=== PATIENT | male | born 1945 | race Caucasian/White ===

== ENCOUNTER 2018-02-22 17:08 | Emergency (ER) | payer MEDICARE ==
--- NOTE | 2018-02-22 17:18 | EDM.PDOC ---
ED HPI GENERAL MEDICAL PROBLEM - General Stated Complaint: ILLNESS [facility] Time Seen by Provider: 02/22/18 17:10 Source of Information: Reports: Patient, EMS, RN Notes Reviewed History Limitations: Reports: No Limitations - History of Present Illness INITIAL COMMENTS - FREE TEXT/NARRATIVE: 72-year-old gentleman presents to the emergency department today via EMS for an unresponsive event. He was scheduled for clinic visit today however he did not show well for check was called on him law enforcement found him unresponsive on the floor EMS was called initial blood sugar was 36 they did provide 250 mL of glucose in combination with some food he was able to arouse. Brought into the emergency department for further evaluation. He does not recall any of this, states last night he remembers give himself some insulin but then has no recollection of any other events. At this time he has no complaints other than being hungry - Related Data Allergies Allergy/AdvReac Type Severity Reaction Status Date / Time Penicillins Allergy Cannot Verified 02/22/18 17:35 Remember Home Meds: Home Meds Aspirin 325 mg PO DAILY 03/28/14 [History] Hydrochlorothiazide/Losartan [Hyzaar 100-25 MG] 1 tab PO DAILY 03/28/14 [History ] Insulin Lispro [HumaLOG] 30 units SQ TIDMEALS 03/28/14 [History] Metoprolol Succinate [Toprol XL] 50 mg PO DAILY 03/28/14 [History] Simvastatin [Zocor] 20 mg PO BEDTIME 03/28/14 [History] amLODIPine [Norvasc] 10 mg PO DAILY 03/28/14 [History] metFORMIN [Glucophage] 1,000 mg PO BID 03/28/14 [History] Dulaglutide [Trulicity] 1.5 mg SUBCUT WEEKLY 02/22/18 [History] Insulin Glargine,Hum.Rec.Anlog [Basaglar Kwikpen U-100] 80 units SUBCUT DAILY [History] Past Medical History Endocrine/Metabolic History: Reports: Diabetes, Type II Social & Family History - Tobacco Use Smoking Status *Q: Never Smoker ED ROS GENERAL - Review of Systems Review Of Systems: See Below Constitutional: Reports: No Symptoms HEENT: Reports: No Symptoms Respiratory: Reports: No Symptoms Cardiovascular: Reports: No Symptoms GI/Abdominal: Reports: No Symptoms : Reports: No Symptoms Musculoskeletal: Reports: No Symptoms Skin: Reports: No Symptoms Neurological: Reports: No Symptoms - Physical Exam Exam: See Below Text/Narrative:: General: Male, not in any distress, speech is difficult to understand,, alert and oriented x3 HEENT: head is atraumatic normocephalic, eyes pupils equal round reactive to light, sclera clear no conjunctivitis appreciated. Ears tympanic membranes clear and roldan landmarks and light reflex are present bilaterally canals are clear. Nose no septal deviation, nares are clear, no blood present. Mouth mucosa is moist and pink no erythema or exudate noted in soft palate, tongue is midline uvula is midline, dentition is intact. Neck: Supple no thyromegaly no tracheal deviation. Nodes: Cervical nodes subclavicular nodes nontender no palpable lymphadenopathy noted. Lungs: clear to auscultation bilaterally with symmetrical respirations, no adventitious noise appreciated. CV: Regular rate and rhythm S1 and S2 appreciated no murmurs rubs or gallops noted. Abdomen: Soft, obese, nontender, no palpable masses or organomegaly appreciated , no distention no guarding bowel sounds are present, . Neuro: GCS 15 Skin: Warm and dry, intact Extremities: No lower extremity edema appreciated, chronic stasis dermatitis bilaterally pedal pulse is +2. Course - Vital Signs Last Recorded V/S: Last Vital Signs Temp 96.7 F 02/22/18 17:32 Pulse 90 02/22/18 18:43 Resp 17 02/22/18 18:43 BP 114/64 02/22/18 18:43 Pulse Ox 96 02/22/18 18:43 - Orders/Labs/Meds Orders: Active Orders 24 hr Category Date Time Status EKG Documentation Completion [RC] ASDIRECTED Care 02/22/18 17:20 Active EKG 12 Lead [EK] Urgent Ther 02/22/18 17:19 Ordered Labs: Laboratory Tests 02/22/18 02/22/18 02/22/18 Range/Units 17:19 17:30 17:34 WBC 10.4 (4.5-11.0) K/uL RBC 4.92 (4.30-5.90) M/uL Hgb 13.7 (12.0-15.0) g/dL Hct 42.4 (40.0-54.0) % MCV 86 (80-98) fL MCH 28 (27-31) pg MCHC 32 (32-36) % Plt Count 279 (150-400) K/uL Neut % (Auto) 83 H (36-66) % Lymph % (Auto) 10 L (24-44) % Griggs % (Auto) 7 H (2-6) % Eos % (Auto) 0 L (2-4) % Baso % (Auto) 0 (0-1) % Sodium 141 (140-148) mmol/L Potassium 3.6 (3.6-5.2) mmol/L Chloride 104 (100-108) mmol/L Carbon Dioxide 27 (21-32) mmol/L Anion Gap 10.0 (5.0-14.0) mmol/L BUN 23 H (7-18) mg/dL Creatinine 1.3 (0.8-1.3) mg/dL Est Cr Clr Drug Dosing 47.71 mL/min Estimated GFR (MDRD) 55 L (>60) Glucose 139 H (74-106) mg/dL Lactic Acid (0.4-2.0) mmol/L Calcium 9.0 (8.5-10.1) mg/dL Phosphorus 2.7 (2.5-4.9) mg/dL Magnesium 1.8 (1.8-2.4) mg/dL Total Bilirubin 0.5 (0.2-1.0) mg/dL AST 21 (15-37) U/L ALT 29 (12-78) U/L Alkaline Phosphatase 83 (46-116) U/L Ammonia (11-32) mmol/L Creatine Kinase 124 (39-308) U/L Troponin I < 0.017 (0.000-0.056) ng/mL Total Protein 7.1 (6.4-8.2) g/dL Albumin 3.2 L (3.4-5.0) g/dL Globulin 3.9 H (2.3-3.5) g/dL Albumin/Globulin Ratio 0.8 L (1.2-2.2) TSH, Ultra Sensitive 0.664 (0.358-3.740) uIU/mL Urine Color Urine Appearance Urine pH (4.5-8.0) Ur Specific L[place] (1.008-1.030) Urine Protein (NEGATIVE) mg/dL Urine Glucose (UA) (NEGATIVE) mg/dL Urine Ketones (NEGATIVE) mg/dL Urine Occult Blood (NEGATIVE) Urine Nitrite (NEGAITVE) Urine Bilirubin (NEGATIVE) Urine Urobilinogen (NORMAL) mg/dL Ur Leukocyte Esterase (NEGATIVE) Urine RBC (0-5) Urine WBC (0-5) Ur Epithelial Cells Amorphous Sediment Urine Bacteria Urine Mucus Salicylates (2.0-20.0) mg/dL Urine Opiates Screen (NEGATIVE) Ur Oxycodone Screen (NEGATIVE) Urine Methadone Screen (NEGATIVE) Ur Propoxyphene Screen (NEGATIVE) Acetaminophen < 2.0 L (10.0-30.0) ug/mL Ur Barbiturates Screen (NEGATIVE) Ur Tricyclics Screen (NEGATIVE) Ur Phencyclidine Scrn (NEGATIVE) Ur Amphetamine Screen (NEGATIVE) U Methamphetamines Scrn (NEGATIVE) Urine MDMA Screen (NEGATIVE) U Benzodiazepines Scrn (NEGATIVE) U Cocaine Metab Screen (NEGATIVE) U Marijuana (THC) Screen (NEGATIVE) Ethyl Alcohol mg/dL 02/22/18 02/22/18 02/22/18 Range/Units 17:34 17:34 17:34 WBC (4.5-11.0) K/uL RBC (4.30-5.90) M/uL Hgb (12.0-15.0) g/dL Hct (40.0-54.0) % MCV (80-98) fL MCH (27-31) pg MCHC (32-36) % Plt Count (150-400) K/uL Neut % (Auto) (36-66) % Lymph % (Auto) (24-44) % Griggs % (Auto) (2-6) % Eos % (Auto) (2-4) % Baso % (Auto) (0-1) % Sodium (140-148) mmol/L Potassium (3.6-5.2) mmol/L Chloride (100-108) mmol/L Carbon Dioxide (21-32) mmol/L Anion Gap (5.0-14.0) mmol/L BUN (7-18) mg/dL Creatinine (0.8-1.3) mg/dL Est Cr Clr Drug Dosing mL/min Estimated GFR (MDRD) (>60) Glucose (74-106) mg/dL Lactic Acid 2.1 H (0.4-2.0) mmol/L Calcium (8.5-10.1) mg/dL Phosphorus (2.5-4.9) mg/dL Magnesium (1.8-2.4) mg/dL Total Bilirubin (0.2-1.0) mg/dL AST (15-37) U/L ALT (12-78) U/L Alkaline Phosphatase (46-116) U/L Ammonia 5 L (11-32) mmol/L Creatine Kinase (39-308) U/L Troponin I (0.000-0.056) ng/mL Total Protein (6.4-8.2) g/dL Albumin (3.4-5.0) g/dL Globulin (2.3-3.5) g/dL Albumin/Globulin Ratio (1.2-2.2) TSH, Ultra Sensitive (0.358-3.740) uIU/mL Urine Color Urine Appearance Urine pH (4.5-8.0) Ur Specific Loxley (1.008-1.030) Urine Protein (NEGATIVE) mg/dL Urine Glucose (UA) (NEGATIVE) mg/dL Urine Ketones (NEGATIVE) mg/dL Urine Occult Blood (NEGATIVE) Urine Nitrite (NEGAITVE) Urine Bilirubin (NEGATIVE) Urine Urobilinogen (NORMAL) mg/dL Ur Leukocyte Esterase (NEGATIVE) Urine RBC (0-5) Urine WBC (0-5) Ur Epithelial Cells Amorphous Sediment Urine Bacteria Urine Mucus Salicylates 1.6 L (2.0-20.0) mg/dL Urine Opiates Screen (NEGATIVE) Ur Oxycodone Screen (NEGATIVE) Urine Methadone Screen (NEGATIVE) Ur Propoxyphene Screen (NEGATIVE) Acetaminophen (10.0-30.0) ug/mL Ur Barbiturates Screen (NEGATIVE) Ur Tricyclics Screen (NEGATIVE) Ur Phencyclidine Scrn (NEGATIVE) Ur Amphetamine Screen (NEGATIVE) U Methamphetamines Scrn (NEGATIVE) Urine MDMA Screen (NEGATIVE) U Benzodiazepines Scrn (NEGATIVE) U Cocaine Metab Screen (NEGATIVE) U Marijuana (THC) Screen (NEGATIVE) Ethyl Alcohol mg/dL 02/22/18 02/22/18 02/22/18 Range/Units 17:34 18:42 18:42 WBC (4.5-11.0) K/uL RBC (4.30-5.90) M/uL Hgb (12.0-15.0) g/dL Hct (40.0-54.0) % MCV (80-98) fL MCH (27-31) pg MCHC (32-36) % Plt Count (150-400) K/uL Neut % (Auto) (36-66) % Lymph % (Auto) (24-44) % Griggs % (Auto) (2-6) % Eos % (Auto) (2-4) % Baso % (Auto) (0-1) % Sodium (140-148) mmol/L Potassium (3.6-5.2) mmol/L Chloride (100-108) mmol/L Carbon Dioxide (21-32) mmol/L Anion Gap (5.0-14.0) mmol/L BUN (7-18) mg/dL Creatinine (0.8-1.3) mg/dL Est Cr Clr Drug Dosing mL/min Estimated GFR (MDRD) (>60) Glucose (74-106) mg/dL Lactic Acid (0.4-2.0) mmol/L Calcium (8.5-10.1) mg/dL Phosphorus (2.5-4.9) mg/dL Magnesium (1.8-2.4) mg/dL Total Bilirubin (0.2-1.0) mg/dL AST (15-37) U/L ALT (12-78) U/L Alkaline Phosphatase (46-116) U/L Ammonia (11-32) mmol/L Creatine Kinase (39-308) U/L Troponin I (0.000-0.056) ng/mL Total Protein (6.4-8.2) g/dL Albumin (3.4-5.0) g/dL Globulin (2.3-3.5) g/dL Albumin/Globulin Ratio (1.2-2.2) TSH, Ultra Sensitive (0.358-3.740) uIU/mL Urine Color Yellow Urine Appearance Slightly cloudy Urine pH 5.0 (4.5-8.0) Ur Specific L[place]ley 1.025 (1.008-1.030) Urine Protein Trace (NEGATIVE) mg/dL Urine Glucose (UA) Normal (NEGATIVE) mg/dL Urine Ketones Negative (NEGATIVE) mg/dL Urine Occult Blood Negative (NEGATIVE) Urine Nitrite Negative (NEGAITVE) Urine Bilirubin Negative (NEGATIVE) Urine Urobilinogen Normal (NORMAL) mg/dL Ur Leukocyte Esterase Negative (NEGATIVE) Urine RBC 0-5 (0-5) Urine WBC 0-5 (0-5) Ur Epithelial Cells Rare Amorphous Sediment Few Urine Bacteria Few Urine Mucus Few Salicylates (2.0-20.0) mg/dL Urine Opiates Screen Negative (NEGATIVE) Ur Oxycodone Screen Negative (NEGATIVE) Urine Methadone Screen Negative (NEGATIVE) Ur Propoxyphene Screen Negative (NEGATIVE) Acetaminophen (10.0-30.0) ug/mL Ur Barbiturates Screen Negative (NEGATIVE) Ur Tricyclics Screen Negative (NEGATIVE) Ur Phencyclidine Scrn Negative (NEGATIVE) Ur Amphetamine Screen Negative (NEGATIVE) U Methamphetamines Scrn Negative (NEGATIVE) Urine MDMA Screen Negative (NEGATIVE) U Benzodiazepines Scrn Negative (NEGATIVE) U Cocaine Metab Screen Negative (NEGATIVE) U Marijuana (THC) Screen Negative (NEGATIVE) Ethyl Alcohol < 3 mg/dL Departure - Departure Time of Disposition: 19:04 Disposition: Home, Self-Care 01 Condition: Fair Clinical Impression: Hypoglycemic reaction to insulin - Discharge Information Additional Instructions: Take your regular medications, Please followup with your primary care provider in 3-5 days if not better, please call return to the emergency department with worsening of symptoms. - My Orders Last 24 Hours: My Active Orders 02/22/18 17:19 EKG 12 Lead [EK] Urgent 02/22/18 17:20 EKG Documentation Completion [RC] ASDIRECTED - Assessment/Plan Last 24 Hours: My Active Orders 02/22/18 17:19 EKG 12 Lead [EK] Urgent 02/22/18 17:20 EKG Documentation Completion [RC] ASDIRECTED Plan: Assessment Acuity = acute Site and laterality = hypoglycemic event Etiology = suspicious for accidental overdose of insulin Manifestations = none Location of injury = Home Lab values = CBC, CMP, troponin, CK, thyroid, urinalysis, urine drug screen all within normal limits Plan I did review lab work with him he was able to tolerate a meal he feels back to his normal state plan is to discharge home keep his regular appointments with his primary care provider he is questioning whether he had a faulty insulin pen This note was dictated using [employer] voice recognition software please call with any questions on syntax or grammar.
[2018-02-22 18:07] LABS: ACETAMINOPHEN < 2.0 ug/mL (10.0-30.0)
[2018-02-22 18:43] VITALS: BP 114/64
== END 2018-02-22 19:26 | disposition home or self-care (01) ==
LOC: JP.ED 17:08
DX: E11.649 Type 2 diabetes mellitus with hypoglycemia without coma (principal); T38.3X5A Adverse effect of insulin and oral hypoglycemic [antidiabetic] drugs, initial encounter; Z88.0 Allergy status to penicillin; Z79.82 Long term (current) use of aspirin; Z79.899 Other long term (current) drug therapy; Z79.4 Long term (current) use of insulin; Z79.84 Long term (current) use of oral hypoglycemic drugs
CPT/HCPCS: 36415; 80053; 80305; 81001; 82140; 82550; 82962; 83605; 83735; 84100; 84443; 84484; 85025; 93005; 99284; G0480

== ENCOUNTER 2018-02-27 17:12 | Emergency (ER) | payer MEDICARE ==
[2018-02-27 17:17] VITALS: BP 107/58
--- NOTE | 2018-02-27 17:26 | EDM.PDOC ---
ED HPI GENERAL MEDICAL PROBLEM - General Chief Complaint: General Stated Complaint: MEDICAL [facility]IA [facility] Time Seen by Provider: 02/27/18 17:20 Source of Information: Reports: Patient, EMS, Old Records History Limitations: Reports: No Limitations - History of Present Illness INITIAL COMMENTS - FREE TEXT/NARRATIVE: 72 yo male was not responding to calls from friends today and so they investigated and found him unresponsive on the floor. He is diabetic on insulin. EMS noted a BS of 20 and administered 1.5 gm of dextrose and gave him a tube of oral glucose. He was up to 50 for a blood sugar as he arrived here at the hospital. Patient is alert and oriented on arrival. Onset: Today Onset Date: 02/27/18 Duration: Other (uncertain) Location: Reports: Generalized Quality: Reports: Other (no pain) Severity: Severe Improves with: Reports: Other (glucose) Worsens with: Reports: Other (not monitoring his own blood sugar) Context: Reports: Other (on insulin therapy for DM) Associated Symptoms: Reports: Diaphoresis, Weakness, Other (decreased LOC) Treatments RADIOGRAPHER CARDIAC CATHETERIZATION: Reports: Other (see below) (glucose) - Related Data Allergies Allergy/AdvReac Type Severity Reaction Status Date / Time Penicillins Allergy Cannot Verified 02/27/18 17:13 Remember Home Meds: Home Meds Aspirin 325 mg PO DAILY 03/28/14 [History] Hydrochlorothiazide/Losartan [Hyzaar 100-25 MG] 1 tab PO DAILY 03/28/14 [History ] Insulin Lispro [HumaLOG] 30 units SQ TIDMEALS 03/28/14 [History] Metoprolol Succinate [Toprol XL] 50 mg PO DAILY 03/28/14 [History] Simvastatin [Zocor] 20 mg PO BEDTIME 03/28/14 [History] amLODIPine [Norvasc] 10 mg PO DAILY 03/28/14 [History] metFORMIN [Glucophage] 1,000 mg PO BID 03/28/14 [History] Dulaglutide [Trulicity] 1.5 mg SUBCUT WEEKLY 02/22/18 [History] Insulin Glargine,Hum.Rec.Anlog [Basaglar Kwikpen U-100] 80 units SUBCUT DAILY [History] Past Medical History Cardiovascular History: Reports: High Cholesterol, Hypertension, Other (See Below) Other Cardiovascular History: venis stasis Genitourinary History: Reports: Chronic Renal Insuffiency Neurological History: Reports: Neuropathy, Diabetic Endocrine/Metabolic History: Reports: Diabetes, Type II Dermatologic History: Reports: Venous Stasis Dermatitis Social & Family History - Tobacco Use Smoking Status *Q: Never Smoker Second Hand Smoke Exposure: No - Caffeine Use Caffeine Use: Reports: Coffee - Recreational Drug Use Recreational Drug Use: No ED ROS GENERAL - Review of Systems Review Of Systems: See Below Constitutional: Reports: Diaphoresis HEENT: Reports: No Symptoms Respiratory: Reports: No Symptoms Cardiovascular: Reports: No Symptoms Endocrine: Reports: Low Glucose GI/Abdominal: Reports: No Symptoms : Reports: No Symptoms Musculoskeletal: Reports: No Symptoms Skin: Reports: Diaphoresis Neurological: Reports: Other (decreased LOC, resolved on arrival.) ED EXAM, GENERAL - Physical Exam Exam: See Below Exam Limited By: No Limitations General Appearance: Alert, WD/WN, No Apparent Distress, Obese Eye Exam: Bilateral Eye: Normal Inspection Ears: Normal External Exam, Normal Canal, Hearing Grossly Normal, Normal TMs Ear Exam: Bilateral Ear: Auricle Normal, Canal Normal Nose: Normal Inspection, Normal Mucosa, No Blood Throat/Mouth: Normal Inspection, Normal Lips, Normal Oropharynx, Normal Voice, No Airway Compromise Head: Atraumatic, Normocephalic Neck: Normal Inspection, Supple, Non-Tender Respiratory/Chest: No Respiratory Distress, Lungs Clear, Normal Breath Sounds, No Accessory Muscle Use Cardiovascular: Regular Rate, Rhythm, No Edema GI/Abdominal: Normal Bowel Sounds, Soft, Non-Tender Back Exam: Normal Inspection. No: CVA Tenderness (R), CVA Tenderness (L) Extremities: Normal Inspection, Normal Range of Motion, Non-Tender, No Pedal Edema Neurological: Alert, Oriented, CN II-XII Intact, Normal Cognition, No Motor/ Sensory Deficits Psychiatric: Normal Affect, Normal Mood Skin Exam: Warm, Dry, Intact, Normal Color, No Rash Lymphatic: No Adenopathy Course - Vital Signs Last Recorded V/S: Last Vital Signs Temp 35.4 C 02/27/18 17:18 Pulse 88 02/27/18 17:18 Resp 17 02/27/18 17:18 BP 107/58 L 02/27/18 17:18 Pulse Ox 100 02/27/18 17:18 Departure - Departure Time of Disposition: 18:00 Disposition: Home, Self-Care 01 Condition: Good Clinical Impression: Hypoglycemia, Hypoglycemic reaction to insulin - Discharge Information *PRESCRIPTION DRUG MONITORING PROGRAM REVIEWED*: No *COPY OF PRESCRIPTION DRUG MONITORING REPORT IN PATIENT JHONNY: No Referrals: PCP,None [Primary Care Provider] - Forms: ED Department Discharge Additional Instructions: See your doctor for recheck early this week. Check your blood sugars more often to avoid what happened today. If your blood sugars are low take less insulin. If you don't understand how to do this then discuss getting more diabetic education through your provider. Return as needed.
== END 2018-02-27 18:18 | disposition home or self-care (01) ==
LOC: JP.ED 17:12
DX: E11.649 Type 2 diabetes mellitus with hypoglycemia without coma (principal); T38.3X5A Adverse effect of insulin and oral hypoglycemic [antidiabetic] drugs, initial encounter; E11.22 Type 2 diabetes mellitus with diabetic chronic kidney disease; E11.40 Type 2 diabetes mellitus with diabetic neuropathy, unspecified; I12.9 Hypertensive chronic kidney disease with stage 1 through stage 4 chronic kidney disease, or unspecified chronic kidney disease; N18.9 Chronic kidney disease, unspecified; Z79.84 Long term (current) use of oral hypoglycemic drugs; Z88.0 Allergy status to penicillin; Z79.82 Long term (current) use of aspirin; Z79.899 Other long term (current) drug therapy
CPT/HCPCS: 99285

== ENCOUNTER 2018-11-05 15:05 | Emergency (ER) | payer MEDICARE ==
[2018-11-05] MEDS ORDERED: 50% Dextrose in Water 50 ML Syringe IVPUSH ONE ×2 (15:15→17:09)
--- NOTE | 2018-11-05 15:36 | EDM.PDOC ---
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 Patient combative and unable to give any history but diaphoretic and confusion noted. - Related Data Allergies Allergy/AdvReac Type Severity Reaction Status Date / Time Penicillins Allergy Cannot Verified 02/27/18 17:13 Remember Home Meds: Home Meds Aspirin 325 mg PO DAILY 03/28/14 [History] Hydrochlorothiazide/Losartan [Hyzaar 100-25 MG] 1 tab PO DAILY 03/28/14 [History ] Insulin Lispro [HumaLOG] 30 units SQ TIDMEALS 03/28/14 [History] Metoprolol Succinate [Toprol XL] 50 mg PO DAILY 03/28/14 [History] Simvastatin [Zocor] 20 mg PO BEDTIME 03/28/14 [History] amLODIPine [Norvasc] 10 mg PO DAILY 03/28/14 [History] metFORMIN [Glucophage] 1,000 mg PO BID 03/28/14 [History] Dulaglutide [Trulicity] 1.5 mg SUBCUT WEEKLY 02/22/18 [History] Insulin Glargine,Hum.Rec.Anlog [Basaglar Kwikpen U-100] 80 units SUBCUT DAILY [History] Past Medical History Cardiovascular History: Reports: High Cholesterol, Hypertension, Other (See Below) Other Cardiovascular History: venis stasis Genitourinary History: Reports: Chronic Renal Insuffiency Neurological History: Reports: Neuropathy, Diabetic Endocrine/Metabolic History: Reports: Diabetes, Type II Dermatologic History: Reports: Venous Stasis Dermatitis Social & Family History - Caffeine Use Caffeine Use: Reports: Coffee ED ROS GENERAL - Review of Systems Review Of Systems: Unable To Obtain - Physical Exam Exam: See Below Exam Limited By: Altered Mental Status General Appearance: Other (sweaty diaphoretic, pale and confused/combative) Ears: Hearing Loss (very hard of hearing) Nose: Normal Inspection, Normal Mucosa, No Blood Throat/Mouth: Normal Inspection, Normal Lips, Normal Teeth, Normal Gums, Normal Voice, No Airway Compromise Head Exam: Atraumatic, Normocephalic Neck: Normal Inspection, Supple, Non-Tender, Full Range of Motion Respiratory/Chest: No Respiratory Distress, Lungs Clear, Normal Breath Sounds, No Accessory Muscle Use, Chest Non-Tender Cardiovascular: Normal Peripheral Pulses, Regular Rate, Rhythm GI/Abdominal: Normal Bowel Sounds, Soft, Non-Tender, Other (Limited exam due to body habitus and abdominal girth) Neuro Exam (Abbreviated): Confused, Other (slurred speach and difficult to understand ) Extremities: Normal Inspection, Normal Range of Motion, Non-Tender, Pedal Edema Psychiatric: Normal Affect, Normal Mood Skin Exam: Warm, Dry, Intact, Normal Color, No Rash EKG INTERPRETATION EKG Date: 11/05/18 Time: 17:15 Rhythm: NSR [place]: Normal P-Wave: Present QRS: RBBB ST-T: Other (flipped T waves V1-V3 with biphasic T wave in V4) Course - Vital Signs Last Recorded V/S: Last Vital Signs Temp 35.9 C 11/05/18 19:22 Pulse 91 11/05/18 19:22 Resp 20 11/05/18 19:22 BP 151/77 H 11/05/18 19:22 Pulse Ox 93 L 11/05/18 19:22 - Orders/Labs/Meds Orders: Active Orders 24 hr Category Date Time Status Blood Glucose Check, Bedside [RC] Q1HR Care 11/05/18 16:02 Inactive EKG Documentation Completion [RC] ASDIRECTED Care 11/05/18 15:16 Active POC Glucose [Blood Glucose Check, Bedside] [RC] ONETIME Care 11/05/18 19:00 Active Sodium Chloride 0.9% [Normal Saline] 1,000 ml Med 11/05/18 16:30 Active IV ASDIRECTED Medication Orders Sodium Chloride (Normal Saline) 1,000 mls @ 500 mls/hr IV ASDIRECTED RICH Last Admin: 11/05/18 16:42 Dose: 500 mls/hr Labs: Laboratory Tests 11/05/18 11/05/18 Range/Units 15:16 15:16 WBC 11.1 H (4.5-11.0) K/uL RBC 4.40 (4.30-5.90) M/uL Hgb 12.6 (12.0-15.0) g/dL Hct 39.1 L (40.0-54.0) % MCV 89 (80-98) fL MCH 29 (27-31) pg MCHC 32 (32-36) % Plt Count 362 (150-400) K/uL Neut % (Auto) 76 H (36-66) % Lymph % (Auto) 15 L (24-44) % [place] % (Auto) 9 H (2-6) % Eos % (Auto) 1 L (2-4) % Baso % (Auto) 0 (0-1) % Sodium 140 (140-148) mmol/L Potassium 3.6 (3.6-5.2) mmol/L Chloride 104 (100-108) mmol/L Carbon Dioxide 24 (21-32) mmol/L Anion Gap 11.6 (5.0-14.0) mmol/L BUN 21 H (7-18) mg/dL Creatinine 1.6 H (0.8-1.3) mg/dL Est Cr Clr Drug Dosing 38.21 mL/min Estimated GFR (MDRD) 43 L (>60) Glucose 99 (74-106) mg/dL Calcium 8.6 (8.5-10.1) mg/dL Meds: Medications Generic Name Dose Route Start Last Admin Trade Name Freq PRN Reason Stop Dose Admin Sodium Chloride 1,000 mls @ 500 mls/hr 11/05/18 16:30 11/05/18 16:42 Normal Saline IV 500 mls/hr ASDIRECTED RICH Administration Discontinued Medications Generic Name Dose Route Start Last Admin Trade Name Galdino PRN Reason Stop Dose Admin Dextrose/Water 50 ml 11/05/18 15:15 11/05/18 15:25 Dextrose 50% In Water IVPUSH 11/05/18 15:16 50 ml ONETIME ONE Administration Dextrose/Water 50 ml 11/05/18 17:09 Dextrose 50% In Water IVPUSH 11/05/18 17:10 ONETIME ONE Dextrose/Sodium Chloride 1,000 mls @ 150 mls/hr 11/05/18 17:15 Dextrose 5%-Normal Saline IV ASDIRECTED RICH Morphine Sulfate 1 mg 11/05/18 15:38 11/05/18 15:42 Morphine IVPUSH 11/05/18 15:39 1 mg ONETIME ONE Administration - Re-Assessments/Exams Free Text/Narrative Re-Assessment/Exam: I assisted with transfer from wheelchair to bed and requested IV access and glucose testing BS <20. Multiple attempts at IV placement completed but unsuccessful due to patient confused, combative, fighting due to pain and sweating. Soft Medical restraints placed to assist with IV placement. I decided on IO placement while anesthesia attempted placement in right hand x 2. D50 1 amp given in IO site while IV access was completed by anesthesia. Patient's confusion improved but slurred speech continued unsure if baseline or stroke concern should be address. nursing to obtain history from family for baseline behavior and mental status. 11/05/18 15:05 1653 BS 15 minutes after evening meal 61. Slurred speech clear but very hard of hearing despite yelling. 1812 BS 105 improving. Recheck at 1900 to ensure improving and ride is available. Discharge is planned if BS remains above previous level. BS 89 No Insulin given , concern regarding lowering BS level without intervention. Patient given orange juice. Patient is very hard of hearing but instructions will typed to ensure understanding. Patient is anxious and wants to go home soon. Patient told he may take his metformin but no insulin unless checking blood sugar and new sliding scale given. 11/05/18 19:03 Talked to ride about recheck in am to ensure welfare in am and throughout the weekend. 11/05/18 19:45 Departure - Departure Time of Disposition: 19:37 Disposition: Home, Self-Care 01 Clinical Impression: Hypoglycemia due to insulin, Diabetic neuropathy - Discharge Information Instructions: Preventing Hypoglycemia, Hypoglycemia, [id number] Referrals: PCP,None [Primary Care Provider] - Forms: ED Department Discharge Additional Instructions: 1. Check Blood sugar every 2 hours tonight to ensure no low readings, drink orange juice if BS less than 100. 2. May take Metformin as directed. No BASAGLAR INSULIN. 3. Humalog/Novalong Insulin per sliding scale as noted below BS testing Insulin <100 NONE 101-200 4 UNITS 201-300 6 UNITS >300 8 UNITS Recheck Blood Sugar every 2 hrs as needed. 4. Call PCP on Thursday to discuss Trulicity, Long Acting and Short Acting Insulin dosing schedule. 5. Return to ER if confusion or low blood sugars noted. 6. Consider admission to Hospital to monitor blood sugar closely but patient requested discharge. - Problem List & Annotations (1) Hypoglycemia due to insulin SNOMED Code(s): 162627315 Code(s): E16.0 - DRUG-INDUCED HYPOGLYCEMIA WITHOUT COMA; T38.3X5A - ADVERSE EFFECT OF INSULIN AND ORAL HYPOGLYCEMIC DRUGS, INIT Status: Acute Current Visit: Yes - My Orders Last 24 Hours: My Active Orders 11/05/18 15:16 EKG Documentation Completion [RC] ASDIRECTED 11/05/18 16:02 Blood Glucose Check, Bedside [RC] Q1HR 11/05/18 16:30 Sodium Chloride 0.9% [Normal Saline] 1,000 ml IV ASDIRECTED 11/05/18 19:00 POC Glucose [Blood Glucose Check, Bedside] [RC] ONETIME - Assessment/Plan Last 24 Hours: My Active Orders 11/05/18 15:16 EKG Documentation Completion [RC] ASDIRECTED 11/05/18 16:02 Blood Glucose Check, Bedside [RC] Q1HR 11/05/18 16:30 Sodium Chloride 0.9% [Normal Saline] 1,000 ml IV ASDIRECTED 11/05/18 19:00 POC Glucose [Blood Glucose Check, Bedside] [RC] ONETIME
[2018-11-05] MEDS ORDERED: Morphine 2 MG/ML Syringe IVPUSH ONE (15:38)
[2018-11-05] MEDS ORDERED: Sodium Chloride 0.9% 1,000 ML IV SCH (16:30)
[2018-11-05] MEDS ORDERED: Dextrose 5%-0.9% NaCl 1,000 ML IV SCH (17:15)
[2018-11-05 19:23] VITALS: BP 151/77; PULSE 91
== END 2018-11-05 19:54 | disposition home or self-care (01) ==
LOC: JP.ED 15:05
DX: E16.0 Drug-induced hypoglycemia without coma (principal); T38.3X5A Adverse effect of insulin and oral hypoglycemic [antidiabetic] drugs, initial encounter; E11.40 Type 2 diabetes mellitus with diabetic neuropathy, unspecified; I12.9 Hypertensive chronic kidney disease with stage 1 through stage 4 chronic kidney disease, or unspecified chronic kidney disease; E11.22 Type 2 diabetes mellitus with diabetic chronic kidney disease; N18.9 Chronic kidney disease, unspecified; Z88.0 Allergy status to penicillin; Z79.82 Long term (current) use of aspirin; Z79.4 Long term (current) use of insulin; Z79.899 Other long term (current) drug therapy
CPT/HCPCS: 36415; 80048; 82962; 85025; 93005; 96361; 96374; 96375; 99285; A4216; J2270; J7030; 99284